=== PATIENT | female | born 1945 | race Caucasian/White ===

== ENCOUNTER 2023-02-18 16:49 | Emergency (ER) | payer OTHER ==
[2023-02-18 17:28] VITALS: BP 138/78; PULSE 88; RESP 16; TEMP 98.9; BMI 27.4
[2023-02-18] MEDS ORDERED: ACETAMINOPHEN 325 MG TABLET (FP) PO ONE (17:33)
[2023-02-18] MEDS ORDERED: ACETAMINOPHEN 325 MG TABLET (FP) ONE (17:47)
== END 2023-02-18 19:44 | disposition home or self-care (01) ==
LOC: FER 16:49
DX: M79.605 Pain in left leg (principal); R22.42 Localized swelling, mass and lump, left lower limb; M79.662 Pain in left lower leg
CPT/HCPCS: 93971-TC; 99284-25

== ENCOUNTER 2023-05-17 16:53 | Observation (INO) | payer OTHER ==
[2023-05-17] MEDS ORDERED: SODIUM CHLORIDE 0.9% 1000 ML INFUS.BAG IV ONE (17:43)
[2023-05-17] MEDS ORDERED: ACETAMINOPHEN 1000 MG/100 ML BAG IVPB ONE (17:43)
[2023-05-17] MEDS ORDERED: ACETAMINOPHEN INJECTION 100 ML IVPB ONE (17:45)
[2023-05-17 17:48] LABS: INR 0.96 (0.83-1.09); PROTHROMBIN TIME (PATIENT) 11.1 SEC (9.7-13.0)
[2023-05-17 17:50] LABS: ACTIVATED PTT 32.9 SECONDS (25.2-36.5)
[2023-05-17 17:59] LABS: BILIRUBIN,TOTAL 0.3 mg/dl (0.2-1); POTASSIUM 4.2 mmol/L (3.5-5.1); TOT PROT 5.6 g/dl (6.4-8.2)
[2023-05-17 18:03] LABS: HEMATOCRIT 27.6 % (32.4-45.2); HEMOGLOBIN 8.6 G/dL (10.7-15.3); MCH 24.6 pg (25.7-33.7); MEAN CELL VOLUME 79.2 fl (80-96); MEAN PLT VOLUME 8.3 fl (7.5-11.1); PLATELET COUNT 307.7 10^3/uL (134-434); RBC 3.48 10^6/uL (3.60-5.2); RDW 18.9 % (11.6-15.6); WHITE BLOOD COUNT 7.6 10^3/uL (4.0-10.8)
[2023-05-17 18:25] LABS: EPITHELIAL CELLS 0-5 /hpf
[2023-05-17 18:42] LABS: PLATELET ESTIMATE ADEQUATE
[2023-05-17] MEDS ORDERED: GABAPENTIN 100 MG CAPSULE PO ONE (22:14)
[2023-05-17] MEDS ORDERED: GABAPENTIN 300 MG CAPSULE ONE (22:22)
[2023-05-17] MEDS ORDERED: GABAPENTIN 300 MG CAPSULE PO ONE (22:23)
[2023-05-18 00:28] VITALS: BMI 27.8
[2023-05-18] MEDS ORDERED: DEXTROSE 5%-0.45% SALINE 1,000 ML IV SCH (00:45)
[2023-05-18 07:44] LABS: CALCIUM 9.1 mg/dl (8.5-10.1); POTASSIUM 4.2 mmol/L (3.5-5.1)
[2023-05-18] MEDS ORDERED: PANTOPRAZOLE SODIUM 40 MG VIAL IVPUSH SCH (10:00)
[2023-05-18 10:14] LABS: BASO % 0.6 % (0-2.0); EOS % 1.1 % (0-4.5); HEMATOCRIT 23.7 % (32.4-45.2); HEMOGLOBIN 7.1 GM/dL (10.7-15.3); LYMPH % 24.5 % (8-40); MCH 23.2 pg (25.7-33.7); MCHC 29.8 g/dl (32.0-36.0); MEAN CELL VOLUME 77.8 fl (80-96); MEAN PLT VOLUME 7.6 fl (7.5-11.1); MONO % 9.1 % (3.8-10.2); NEUT % 64.7 % (42.8-82.8); PLATELET COUNT 278 10^3/uL (134-434); RBC 3.05 M/mm3 (3.60-5.2); RDW 18.9 % (11.6-15.6); WHITE BLOOD COUNT 3.9 K/mm3 (4.0-10.0)
[2023-05-18] MEDS ORDERED: PEG 3350/NA SULF BICARB CL/KCL 4000 ML SOLN.RECON PO ONE (17:13)
[2023-05-18] MEDS ORDERED: GABAPENTIN 100 MG CAPSULE PO ONE (22:50)
[2023-05-19 06:15] VITALS: RESP 18
[2023-05-19 08:38] VITALS: BP 121/58; PULSE 63; TEMP 98
[2023-05-19] MEDS ORDERED: POLYETHYLENE GLYCOL (HEALTHYLAX) 3350 17 GM PACKET PO ONE (09:30)
[2023-05-19 09:45] LABS: ALBUMIN 3.7 g/dl (3.4-5.0); BILIRUBIN,TOTAL 0.3 mg/dl (0.2-1); POTASSIUM 4.3 mmol/L (3.5-5.1)
[2023-05-19 10:27] LABS: BASO % 0.5 % (0-2.0); EOS % 0.7 % (0-4.5); HEMATOCRIT 24.3 % (32.4-45.2); HEMOGLOBIN 7.5 GM/dL (10.7-15.3); LYMPH % 23.7 % (8-40); MCH 23.6 pg (25.7-33.7); MEAN PLT VOLUME 7.8 fl (7.5-11.1); MONO % 10.6 % (3.8-10.2); NEUT % 64.5 % (42.8-82.8); PLATELET COUNT 290 10^3/uL (134-434); RDW 19.3 % (11.6-15.6); WHITE BLOOD COUNT 4.7 K/mm3 (4.0-10.0)
== END 2023-05-19 10:16 | disposition home or self-care (01) ==
LOC: FER 16:53 → FM/S 23:40
PROVIDERS: ADMIT Internal Medicine
PROC: 3E0337Z Introduction of Electrolytic and Water Balance Substance into Peripheral Vein, Percutaneous Approach (ICD-10-PCS; principal; 2023-05-17)
DX: K56.600 Partial intestinal obstruction, unspecified as to cause (principal); Q27.30 Arteriovenous malformation, site unspecified; K59.09 Other constipation; K92.9 Disease of digestive system, unspecified; I10 Essential (primary) hypertension; E78.5 Hyperlipidemia, unspecified; C90.00 Multiple myeloma not having achieved remission; F39 Unspecified mood [affective] disorder; G62.9 Polyneuropathy, unspecified; K21.9 Gastro-esophageal reflux disease without esophagitis; J45.909 Unspecified asthma, uncomplicated; Z88.5 Allergy status to narcotic agent
CPT/HCPCS: 36415; 71045-TC-FY; 74177-TC; 80048; 80053; 81003; 81015; 83690; 85025; 85027; 85610; 85730; 86850; 86870; 86880; 86900; 86901; 86902; 87086; 93005; 96361; 96374; 96375; 99285-25; G0378; Q9967